=== PATIENT | female | born 1995 | race Caucasian/White ===

== ENCOUNTER 2024-08-16 11:01 | Emergency (ER) | payer BC ==
[2024-08-16] MEDS ORDERED: Dexamethasone 10 MG/ML VIAL ONE (12:53)
[2024-08-16] MEDS ORDERED: Ketorolac Tromethamine 30 MG (1 mL) VIAL ONE (12:53)
[2024-08-16] MEDS ORDERED: Methocarbamol 500 MG TAB ONE (13:02)
[2024-08-16 13:14] LABS: Bacteria/HPF 1+ HPF (None Seen); Bilirubin Negative (Negative); Blood, Urine Trace (Negative); CAUTI Indications for Culture Pelvic or flank pain; Clarity Clear (Clear); Glucose, Urine (Dipstick) Normal (Negative); Ketone, Urine Negative (Negative); Leukocyte Negative Leu/uL (Negative); Nitrite Negative (Negative); Protein, Urine (Dipstick) Negative (Neg-Trace); Specific Gravity, Urine 1.018 (1.002-1.036); Squamous Epithelial 0-3 HPF (0-3); Urobilinogen Normal mg/dL (Less than 2); WBC/HPF 0-3 HPF (0-3); pH, Urine 7.5 (5.0-9.0)
[2024-08-16 13:15] LABS: Pregnancy Test - Urine (BHCG) Negative (Negative); Pregu Control Background? CLEAR/WHITE (CLR/WHITE); Pregu Control Bar Appear? YES (CONTROL BAR); Specific Gravity 1.018 (1.002-1.036); Urine Culture Reflex No No
[2024-08-16] MEDS ORDERED: Acetaminophen 500 MG TAB ONE (14:12)
== END 2024-08-16 17:08 | disposition home or self-care (01) ==
LOC: ERS 11:01
DX: M54.50 Low back pain, unspecified (principal); M51.26 Other intervertebral disc displacement, lumbar region; Z55.0 Illiteracy and low-level literacy
CPT/HCPCS: 72131; 81001; 81025; 96372; J1100; J1885